=== PATIENT | female | born 1990 | race Native Hawaiian/Other Pacific Islander ===

== ENCOUNTER 2017-06-24 18:20 | Emergency (ER) | payer OTHER ==
[~2017-06-24] VITALS: Ht 160 cm; Wt 88.5 kg
[2017-06-24 19:41] LABS: PLATELET COUNT 216 K/uL (152-353)
[2017-06-24 19:49] LABS: POTASSIUM 3.4 mmol/L (3.6-5.2)
[2017-06-24 20:20] VITALS: BP 121/68; TEMP 98.4
== END 2017-06-24 20:21 | disposition home or self-care (01) ==
LOC: ED 18:20
DX: R53.1 Weakness (principal)
CPT/HCPCS: 36415; 80053; 85027; 87081; 87804; 87880; 99283

== ENCOUNTER 2021-11-15 15:02 | Emergency (ER) | payer OTHER ==
[~2021-11-15] VITALS: Ht 160 cm; Wt 93.0 kg
[2021-11-15 15:03] VITALS: TEMP 98.1
[2021-11-15 15:31] VITALS: BP 129/84
== END 2021-11-15 15:31 | disposition home or self-care (01) ==
LOC: ED 15:02
DX: N94.6 Dysmenorrhea, unspecified (principal)
CPT/HCPCS: 99282